=== PATIENT | male | born 1945 | race Caucasian/White ===

== ENCOUNTER 2021-09-15 15:48 | Emergency (ER) | payer MEDICARE ==
[~2021-09-15] VITALS: Ht 185.4 cm; Wt 100.2 kg
[2021-09-15] MEDS ORDERED: TDAP [DIPH/PERTUSSIS/TET] 0.5 ML VIAL IM ONE ×2 (17:00→17:17)
[2021-09-15] MEDS ORDERED: IBUP-1955 PO (18:44)
--- NOTE | 2021-09-15 18:56 | NUR ---
Patient discharged to home in stable condition. Written and verbal after care instructions given. Patient verbalizes understanding of instruction.
[2021-09-15 18:57] VITALS: BP 132/82
== END 2021-09-15 18:58 | disposition home or self-care (01) ==
LOC: ER 15:52
DX: S60.512A Abrasion of left hand, initial encounter (principal); M54.50 Low back pain, unspecified; I10 Essential (primary) hypertension; E11.9 Type 2 diabetes mellitus without complications; Z88.0 Allergy status to penicillin; V49.49XA Driver injured in collision with other motor vehicles in traffic accident, initial encounter; Y93.89 Activity, other specified; Y92.413 State road as the place of occurrence of the external cause; Y99.8 Other external cause status
CPT/HCPCS: 70450-TC; 71045-TC; 72125-TC; 73130-TC; 90715